=== PATIENT | male | born 1950 | race Two or more races ===

== ENCOUNTER 2017-12-30 11:23 | Emergency (ER) | payer OTHER, BC ==
[2017-12-30 11:33] VITALS: BP 149/109; PULSE 71; BMI 25.0
--- NOTE | 2017-12-30 12:16 | PDOC ---
History of Present Illness - General Chief Complaint: Pain, Acute Stated Complaint: LEFT HIP PAIN Time Seen by Provider: 12/30/17 11:28 - History of Present Illness Initial Comments: 12/30/17 12:09 67 M with h/o afib on coumadin presenting with 2 days of atraumatic L hip pain. Pt states that he first noticed it getting out of the car yesterday. The pain was mild at first but gradually progressed. This morning, he found it hard to even get out of bed due to pain. The pain is localized to his L hip, does not radiate down his leg. Denies back pain. Pt denies any traumatic injury or falls. 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 Past History - Past Medical History Allergies/Adverse Reactions: Allergies Allergy/AdvReac Type Severity Reaction Status Date / Time alcahol Allergy Intermediate rash Uncoded 12/30/17 11:24 Hay fever Allergy Mild congestion Uncoded 12/30/17 11:24 Home Medications: Ambulatory Orders Pindolol 5 mg PO BID tablet 10/27/12 Warfarin Sodium 2 mg PO QID tablet 10/27/12 Warfarin Sodium 5 mg PO QOD tablet 10/27/12 Oxycodone HCl/Acetaminophen [Percocet 5-325 mg Tablet] 1 tab PO Q6H PRN #12 tablet MDD 4 tabs 12/30/17 Ramipril [Altace] 2.5 mg PO DAILY 12/30/17 Cardiac Disorders: Yes (AFIB) CVA: (TIA) COPD: No - Suicide/Smoking/Psychosocial Hx Smoking History: Never smoked Hx Alcohol Use: No Drug/Substance Use Hx: No Substance Use Type: None Review of Systems - Review of Systems Comments:: 12/30/17 12:16 "GENERAL/CONSTITUTIONAL: No fever or chills. No weakness. HEAD, EYES, EARS, NOSE AND THROAT: No change in vision. No ear pain or discharge. No sore throat. CARDIOVASCULAR: No chest pain or shortness of breath. RESPIRATORY: No cough, wheezing, or hemoptysis. GASTROINTESTINAL: No nausea, vomiting, diarrhea or constipation. GENITOURINARY: No dysuria, frequency, or change in urination. MUSCULOSKELETAL: + L hip pain. SKIN: No rash NEUROLOGIC: No headache, vertigo, loss of consciousness, or change in strength/ sensation. ENDOCRINE: No increased thirst. No abnormal weight change. HEMATOLOGIC/LYMPHATIC: No anemia, easy bleeding, or history of blood clots. ALLERGIC/IMMUNOLOGIC: No hives or skin allergy. " *Physical Exam - Vital Signs Last Vital Signs Temp Pulse Resp BP Pulse Ox 71 16 149/109 100 12/30/17 11:23 12/30/17 11:23 12/30/17 11:23 12/30/17 11:23 - Physical Exam Comments: 12/30/17 12:16 "GENERAL: Awake, alert, and fully oriented, in no acute distress. HEAD: No signs of trauma EYES: PERRLA, EOMI, sclera anicteric, conjunctiva clear ENT: Auricles normal inspection, hearing grossly normal, nares patent, oropharynx clear without exudates. Moist mucosa NECK: Nontender, no stepoffs, Normal ROM, supple, no lymphadenopathy, JVD, or masses LUNGS: Breath sounds equal, clear to auscultation bilaterally. No wheezes, and no crackles HEART: Regular rate and rhythm, normal S1 and S2, no murmurs, rubs or gallops ABDOMEN: Soft, nontender, normoactive bowel sounds. No guarding, no rebound. No masses EXTREMITIES: + L hip with no significant tenderness on exam but pain with active ROM, full passive ROM, no swelling, distal pulses intact, no discoloration BACK: no midline tenderness NEUROLOGICAL: Cranial nerves II through XII intact. 5/5 strength and sensation in all extremities, Normal speech, normal gait, normal cerebellar function SKIN: Warm, Dry, normal turgor, no rashes or lesions noted. " ED Treatment Course - RADIOLOGY Radiology Studies Ordered: Category Date Time Status HIP & PELVIS-LEFT [RAD] Stat Radiology 12/30/17 12:07 Ordered Medical Decision Making - Medical Decision Making 12/30/17 12:18 67 M with atraumatic L hip pain x 2 days. Likely trochanteric bursitis as pt is a runner. Pt has h/o afib but does not have any signs of arterial occlusion. Distal extremities are all well perfused with strong pulses. Pt also with no s/ s DVT. Avascular necrosis is a consideration but less likely, as pt does not have any significant risk factors for it. Unclear whether afib predisposes to this but pt is on AC. - XR hip - Analgesia - Tylenol/oxycodone for pain, cannot give NSAIDs due to coumadin. 12/30/17 14:25 XR negative for fx/dislocation or degenerative changes. Pt reassessed - now with better active ROM and less pain. Low suspicion for septic joint or avascular necrosis. Pt is well appearing, with normal vitals. Clinically stable for DC at this time. I discussed the physical exam findings, ancillary test results and final diagnoses with the patient. I answered all of the patient's questions. The patient was satisfied with the care received and felt comfortable with the discharge plan and treatment plan. The patient agrees to follow up with the primary care physician within 24-72 hours. *DC/Admit/Observation/Transfer Diagnosis at time of Disposition: Trochanteric bursitis of left hip - Discharge Dispostion Disposition: HOME Condition at time of disposition: Stable - Referrals Referrals: Carlos Yin MD [Staff Physician] - - Patient Instructions Printed Discharge Instructions: DI for Hip Bursitis Additional Instructions: You likely have trochanteric bursitis. This is often caused by inflammation due to overuse. Be sure to rest your leg to give it time to heal. Take tylenol 1000mg every 8 hours as needed for pain. Do not take ibuprofen or naproxen or any other NSAID, as this may cause bleeding complications due to the Warfarin you are taking. If you experience worsening pain, fevers, bruising or redness around your hip, or any other concerning symptoms, return to the ER immediately. Otherwise, follow up with an orthopedic surgeon in 48 hours. If you have persistent pain, you may need a MRI to look for other causes of your hip pain, such as septic arthritis, an infection of the joint, or avascular necrosis, a potentially debilitating injury to the blood supply of the bones. - Post Discharge Activity - Attestations Physician Attestion: 12/30/17 14:31 I, Dr. Carlos Hutchison MD, attest that this document has been prepared under my direction and personally reviewed by me in its entirety. I further attest, that it accurately reflects all work, treatment, procedures and medical decision -making performed by me.
[2017-12-30 12:23] VITALS: TEMP 97.8
== END 2017-12-30 14:38 | disposition home or self-care (01) ==
LOC: FER 11:23
DX: M70.62 Trochanteric bursitis, left hip (principal); I48.91 Unspecified atrial fibrillation; Z86.73 Personal history of transient ischemic attack (TIA), and cerebral infarction without residual deficits; Z79.01 Long term (current) use of anticoagulants
CPT/HCPCS: 73523-TC-FY; 99282-25

== ENCOUNTER 2018-05-01 10:48 | Day surgery (SDC) | payer OTHER, BC ==
[2018-04-19 18:32] VITALS: BMI 25.0
[2018-05-01 11:06] VITALS: TEMP 97.8
[2018-05-01] MEDS ORDERED: PROPOFOL 20 ML ONE ×2 (11:52)
[2018-05-01 13:27] VITALS: BP 140/85; PULSE 88
== END 2018-05-01 13:30 | disposition home or self-care (01) ==
LOC: FASU-ENDO 10:48
PROVIDERS: ATTEND Internal Medicine Gastroenterology
PROC: 0DJD8ZZ Inspection of Lower Intestinal Tract, Via Natural or Artificial Opening Endoscopic (ICD-10-PCS; principal; 2018-05-01 12:17)
DX: Z12.11 Encounter for screening for malignant neoplasm of colon (principal)